=== PATIENT | female | born 1975 | race Caucasian/White ===

== ENCOUNTER → 2017-02-20 | Outpatient (CLI) | payer OTHER ==
--- NOTE | 2017-02-20 13:14 | RADIOLOGY REPORT (SQ) ---
EXAM DESCRIPTION: MRI PELVIS COMBO COMPLETED DATE/TIME: 02/20/2017 9:27 am REASON FOR STUDY: HYDROSALPINX, OVARIAN CYST N83.292 OTHER OVARIAN CYST, LEFT SIDE COMPARISON: None. TECHNIQUE: Multiplanar multisequence imaging performed without and with contrast including axial, sa gittal and coronal T2, axial T, axial gradient fat sat T1, axial, sagittal and coronal fat sat T2 pos t contrast. CONTRAST TYPE AND DOSE: 15 mL Prohance. RENAL FUNCTION: None required. The patient is less than 50 years old. LIMITATIONS: None. FINDINGS: BLADDER AND URETHRA: No focal bladder wall thickening or nodularity. Smooth mucosa. The urethra has smooth contour with no focal asymmetry. No abnormal enhancement. No focal lesions. PELVIC SOFT TISSUES: Tubular serpiginous structures on both sides of the uterus. No masses. UTERUS: Normal size. Arcuate configuration. No masses. Junctional zone normal. RIGHT OVARY: Normal size. A few simple follicular cysts, largest measuring 1 cm. No masses. LEFT OVARY: Normal size. A few simple follicular cysts, the largest measuring 1.2 cm. No masses. FREE FLUID: None. PELVIC SKELETAL STRUCTURES: No abnormal marrow signal. EXTRA PELVIS SOFT TISSUES: No masses. OTHER: No other significant finding. IMPRESSION: 1. TUBULAR SERPIGINOUS STRUCTURES ON BOTH SIDES OF THE UTERUS. NO FLOW VOIDS. THESE COULD REPRESENT ENGORGED PELVIC VEINS WITH SLOW FLOW. HYDROSALPINX LESS LIKELY BUT CANNOT BE EXCLUDED. IF CLINICAL LY INDICATED, AN HSG EXAM MAY BE CONSIDERED TO COMPLETELY EVALUATE THE FALLOPIAN TUBES. 2. SMALL SIMPLE CYSTS IN THE OVARIES. 3. MILD ARCUATE CONFIGURATION OF THE UTERUS. TECHNICAL DOCUMENTATION: JOB ID: [id number]- All Rights Reserved
== END ==
LOC: RAD 08:04
PROVIDERS: ATTEND Specialist
DX: N83.292 Other ovarian cyst, left side (principal)
CPT/HCPCS: 72197; A9576

== ENCOUNTER 2017-03-09 08:19 | Day surgery (SDC) | payer OTHER ==
--- NOTE | 2017-03-03 07:14 | HISTORY AND PHYSICAL E ---
History and Physical NAME: CHARBEL MÁRQUEZ : 1975 AGE: 42Y ADMITTED: 03/09/2017 ROOM: CHIEF COMPLAINT: Hemorrhoids, abdominal pain. HISTORY OF PRESENT ILLNESS: A 42-year-old patient of Dr. Soares presented with pain left side of the abdomen and hemorrhoids. Patient does complain of constipation. SOCIAL HISTORY: . Does not smoke and does not drink. PAST SURGICAL HISTORY: She did have colonoscopy 18 years ago. She did have rectal bleeding, anal fissure. REVIEW OF SYSTEMS: CARDIAC: High cholesterol. RESPIRATORY: Negative. ENDOCRINE: Negative. GASTROINTESTINAL: Abdominal pain, left side hemorrhoids. Patient did have colonoscopy showing benign fatty tumor. Patient did have colonoscopy showing benign fatty tumor. At this time, patient for followup colon regarding abdominal pain, history of lipoma. ONCOLOGY/HEMATOLOGY: Anemia. NEUROLOGIC/PSYCHIATRIC: Anxiety. FAMILY HISTORY: Father is alive. Mom is alive. PHYSICAL EXAMINATION: VITAL SIGNS: Blood pressure is 100/50, pulse 80, respirations 20, temperature 98. HEAD, EYES, EARS, NOSE, THROAT: Normal. NECK: Supple. LUNGS: Clear. ABDOMEN: Soft. NEUROLOGIC: Negative. CONCLUSION: 1. Hemorrhoids. 2. Rectal bleeding. 3. Abdominal pain. PLAN: Colonoscopy. DICTATING PHYSICIAN: WEI GEORGE M.D. [id number] PHY#: [id number] ID: [id number] JOB#: [id number] ACCT: [id number] cc:WEI GEORGE M.D., WESLEY F. M.D. >
[~2017-03-09 08:19] MED LIST: EPINEPHRINE INJ 1 MG/10 ML DISP.SYRIN ONE; FLUMAZENIL INJ 0.5 MG/5 ML VIAL IV ONE; GLUCAGON,HUMAN RECOMB 1 MG INJ ONE; GLYCOPYRROLATE INJ 0.4 MG/2 ML VIAL ONE; LIDOCAINE 2% JELLY 30 ML TUBE ONE; NALOXONE HCL INJ/PF 0.4 MG/1 ML SDV ONE; ONDANSETRON HCL INJ/PF 4 MG/2 ML SDV ONE
[2017-03-09] MEDS: MIDAZOLAM 2 MG/2 ML INJ ONE ×2 (09:28→09:33)
[2017-03-09] MEDS: FENTANYL CITRATE INJ/PF 100 MCG/2 ML AMPUL ONE ×2 (09:30→09:35)
--- NOTE | 2017-03-09 10:44 | OPERATIVE REPORT E ---
Operative Report NAME: CHARBEL MÁRQUEZ : 1975 AGE: 42Y DATE OF SURGERY: 03/09/2017 ROOM: PREOPERATIVE DIAGNOSIS: Rectal bleeding. POSTOPERATIVE DIAGNOSES: 1. Anal fissure, mild. 2. External hemorrhoids, mild. PROCEDURE: Colonoscopy. SURGEON: WEI GEORGE M.D. ANESTHESIA: Versed 3, fentanyl 100. TISSUE REMOVED OR ALTERED: None. PROCEDURE: Rectal exam shows [id number]. Mild external hemorrhoids. Sigmoid descending colon normal. Transverse colon normal. Ascending colon normal. Cecum normal. Scope withdrawn cecum, ascending, transverse, descending, sigmoid, all the way through the rectum. CONCLUSION: 1. Anal fissure. 2. External hemorrhoids. PLAN: 1. Assurance. 2. High fiber diet. 3. Baseline CBC. DICTATING PHYSICIAN: WEI GEORGE M.D. [id number] PHY#: [id number] ID: [id number] JOB#: [id number] ACCT: [id number] cc:Jonatan JOHNSTON M.D. >
[2017-03-09 10:54] VITALS: BP 97/51
[2017-03-09 11:24] LABS: ABSOLUTE EOSINOPHILS # (AUTO) 0.1 10^3/uL (0.0-0.6); ABSOLUTE LYMPHOCYTES (AUTO) 1.2 10^3/uL (0.5-4.7); ABSOLUTE MONOCYTES (AUTO) 0.3 10^3/uL (0.1-1.4); ABSOLUTE NEUT (AUTO) 3.1 10^3/uL (1.7-8.2); BASOPHILS % (AUTO) 0.6 % (0-2); EOSINOPHILS % (AUTO) 1.9 % (0-6); HEMATOCRIT 36.2 % (36.0-47.0); HGB HCT DIFFERENCE -0.2; LYMPHOCYTES % (AUTO) 24.7 % (13-45); MEAN CORPUSCULAR HGB CONC 33.2 g/dL (32.0-36.0); MEAN CORPUSCULAR VOLUME 91 fl (80-97); MONOCYTES % (AUTO) 6.8 % (3-13); RED CELL DISTRIBUTION WIDTH 12.9 % (11.5-14.0); WHITE BLOOD COUNT 4.7 10^3/uL (4.0-10.5)
--- NOTE | 2017-03-10 09:18 | DISCHARGE SUMMARY E ---
Discharge Summary NAME: CHARBEL MÁRQUEZ : 1975 AGE: 42Y ADMITTED: 03/09/2017 DISCHARGED: 03/09/2017 HISTORY : The patient is a 42-year-old female who presented with rectal bleeding. Today's colonoscopy shows anal fissure and external hemorrhoid. DISCHARGE PLAN: Soft diet. Baseline CBC. Nitroglycerin ointment to be applied to the anal fissure. Awaiting CBC. Consideration for followup colonoscopy in 10 years. DICTATING PHYSICIAN: WEI GEORGE M.D. [id number] PHY#: [id number] ID: [id number] JOB#: [id number] ACCT: [id number] cc:Jonatan JOHNSTON M.D. >
--- NOTE | 2017-03-10 09:18 | DISCHARGE SUMMARY E ---
Discharge Summary NAME: CHARBEL MÁRQUEZ : 1975 AGE: 42Y ADMITTED: 03/09/2017 DISCHARGED: 03/09/2017 PROCEDURE: Colonoscopy. HISTORY: A 42-year-old female with rectal bleeding who underwent colonoscopy today showing no polyps. No active bleeding. She did have mild external hemorrhoids and anal fissure. DISCHARGE PLAN: Assurance. High-fiber diet. Nitroglycerin ointment. Consideration followup colonoscopy after 10 years. DICTATING PHYSICIAN: WEI GEORGE M.D. [id number] PHY#: [id number] ID: [id number] JOB#: [id number] ACCT: [id number] cc:Jonatan JOHNSTON M.D. >
== END 2017-03-09 10:55 | disposition home or self-care (01) ==
LOC: END 08:19
PROVIDERS: ATTEND Specialist
PROC: 0DJD8ZZ Inspection of Lower Intestinal Tract, Via Natural or Artificial Opening Endoscopic (ICD-10-PCS; principal; 2017-03-09 09:00)
DX: K64.4 Residual hemorrhoidal skin tags (principal); K62.5 Hemorrhage of anus and rectum; E78.00 Pure hypercholesterolemia, unspecified; D64.9 Anemia, unspecified; K60.2 Anal fissure, unspecified; F41.9 Anxiety disorder, unspecified
CPT/HCPCS: 45378; 36415; 85025; J2250; J3010; J2405; J0171; J1610; J2310; J3490

== ENCOUNTER → 2017-09-26 | Outpatient (CLI) | payer BC, OTHER ==
--- NOTE | 2017-09-26 15:10 | RADIOLOGY REPORT (SQ) ---
EXAM DESCRIPTION: BARIUM SWALLOW ESOPHAGUS COMPLETED DATE/TIME: 09/26/2017 10:10 am REASON FOR STUDY: DYSPHAGIA R13.10 DYSPHAGIA, UNSPECIFIED COMPARISON: None. TECHNIQUE: Under fluoroscopic guidance, patient ingested effervescent granules followed by thick and thin barium. Fluoroscopic spot images and routine radiographic images acquired and stored on PACS. 12 MM BARIUM TABLET GIVEN: Yes. No significant delay in passage. LIMITATIONS: None. FLUOROSCOPY TIME: FLUORO TIME: 2 minutes 2 seconds of fluoroscopy was used. 13 images saved to PACS. FINDINGS: NEUROMUSCULAR COORDINATION OF SWALLOW: Normal. No aspiration. ESOPHAGEAL MOTILITY: Normal peristalsis. No esophageal spasm. ESOPHAGEAL MUCOSA: Normal mucosa without masses or ulceration. Mild impression upon the proximal eso phagus from multiple level cervical osteophytes. GASTRO-ESOPHAGEAL JUNCTION: No hiatal hernia seen. Mild gastroesophageal reflux is identified. 12 m m barium tab passed through the GE junction without delay. NON-GI TRACT STRUCTURES: No significant finding. OTHER: No other significant finding. IMPRESSION: MILD GASTROESOPHAGEAL REFLUX OTHERWISE UNREMARKABLE BARIUM SWALLOW. COMMENT: Quality ID [id number]: Final reports for procedures using fluoroscopy that document radiation exp osure indices, or exposure time and number of fluorographic images (if radiation exposure indices are not available) TECHNICAL DOCUMENTATION: JOB ID: [id number] [employer]- All Rights Reserved
== END ==
LOC: RAD 09:31
PROVIDERS: ATTEND Internal Medicine
DX: R13.10 Dysphagia, unspecified (principal); K21.9 Gastro-esophageal reflux disease without esophagitis
CPT/HCPCS: 74220